=== PATIENT | male | born 1960 | race Caucasian/White ===

== ENCOUNTER 2016-09-28 23:31 | Emergency (ER) | payer MEDICAID ==
[~2016-09-28] VITALS: Ht 180.3 cm; Wt 68.9 kg
[2016-09-29] MEDS ORDERED: hydrOXYzine HCL 25 MG/ML VL IM ONE
[2016-09-29] MEDS ORDERED: methylPREDNISolone SOD SUCC 125 MG/2 ML VL IV ONE
[2016-09-29] MEDS ORDERED: ALBUTEROL SULF 2.5 MG/0.5ML(0.5%) NEB SOLN NEB ONE (00:45)
[2016-09-29 02:00] VITALS: BP 122/68
== END 2016-09-29 02:33 | disposition home or self-care (01) ==
LOC: ER 23:31
DX: T78.1XXA Other adverse food reactions, not elsewhere classified, initial encounter (principal); I10 Essential (primary) hypertension; I26.99 Other pulmonary embolism without acute cor pulmonale; K59.00 Constipation, unspecified; I31.9 Disease of pericardium, unspecified; Z88.2 Allergy status to sulfonamides; Z88.0 Allergy status to penicillin; Y92.89 Other specified places as the place of occurrence of the external cause
CPT/HCPCS: 94640; 96374; 99284; J2930

== ENCOUNTER 2016-11-13 09:51 | Inpatient (IN) | payer MEDICAID ==
[2016-11-12] MEDS: ACYCLOVIR 400 MG TAB PO SCH (22:30)
[2016-11-12] MEDS: ATORVASTATIN 20 MG TAB PO SCH (22:30)
[~2016-11-13] VITALS: Ht 172.7 cm; Wt 70.8 kg
[2016-11-13 10:33] LABS: Basophils # (auto) 0.1 uL; Basophils % (auto) 1.1 % (0.0-2.0); CONDITION Y; Eosinophils # (auto) 0 uL; Eosinophils % (auto) 0.3 % (0.0-7.0); Hematocrit 36.2 % (41.0-53.0); Hemoglobin 12.6 g/dL (13.5-17.5); Lymphocytes # (auto) 0.6 uL; Mean Corpuscular Hemoglobin 30.5 pg (28.0-32.0); Mean Corpuscular Hgb Conc. 34.7 g/dL (32.0-36.0); Mean Corpuscular Volume 87.7 fL (80.0-100.0); Mean Platelet Volume 7.2 fL (7.4-10.4); Monocytes # (auto) 0.6 uL; Monocytes % (auto) 6.5 % (0.0-12.0); Neutrophils # (auto) 7.2 uL; Neutrophils % (auto) 85.1 % (37.0-80.0); Platelet Count (auto) 237 10^3/uL (140-450); Red Cell Distribution Width 15.1 % (11.6-16.0); White Blood Cell 8.5 10^3/uL (4.4-10.8)
[2016-11-13 10:58] LABS: Albumin 3.7 g/dL (3.4-5.0); Alkaline Phosphatase 107 U/L (45-117); Anion Gap 9 (5-15); Aspartate Aminotransferase 20 U/L (15-37); BUN/Creatinine Ratio 19.8; Bilirubin, Total 0.4 mg/dL (0.2-1.0); Blood Urea Nitrogen 23 mg/dL (7-18); Calcium 8.6 mg/dL (8.5-10.1); Carbon Dioxide 22 mmol/L (21-32); Chloride 113 mmol/L (98-107); GFR African American 84 mL/min; GFR Non-African American 70 mL/min; Glucose 149 mg/dL (74-106); Magnesium 1.7 mg/dL (1.6-2.6); Potassium 3.7 mmol/L (3.5-5.1); Sodium 144 mmol/L (136-145); Total Protein 7.4 g/dL (6.4-8.2)
[2016-11-13] MEDS ORDERED: SODIUM CHLORIDE 0.9% 1,000 ML IVB ONE (12:14)
[2016-11-13] MEDS ORDERED: ONDANSETRON HCL 4 MG/2 ML VIAL IV ONE (12:15)
[2016-11-13 12:44] LABS: Magnesium 1.7 mg/dL (1.6-2.6)
[2016-11-13 12:51] LABS: INR 0.94 (0.9-1.15); Prothrombin Time 10.2 sec (9.37-12.3)
[2016-11-13] MEDS ORDERED: LEVOFLOXACIN 500MG 100 ML IV ONE (17:15)
[2016-11-13] MEDS ORDERED: ACETAMINOPHEN 325 MG TAB PO PRN (17:45)
[2016-11-13] MEDS ORDERED: TEMAZEPAM 15 MG CAP PO PRN (17:45)
[2016-11-13] MEDS ORDERED: ONDANSETRON HCL 4 MG/2 ML VIAL IV PRN (17:45)
[2016-11-13] MEDS ORDERED: DEXTROSE (50%) 50ML SYRG IV PRN (17:45)
[2016-11-13] MEDS ORDERED: HYDROcodone-ACET 5/325MG TAB PO PRN (17:45)
[2016-11-13] MEDS ORDERED: NITROGLYCERIN 0.4 MG SL TAB SL PRN (17:45)
[2016-11-13] MEDS ORDERED: MORPHINE SULF INJ 2 MG/ML SYRINGE 1ML IV PRN (17:45)
[2016-11-13] MEDS ORDERED: predniSONE 20 MG TAB PO ONE (18:00)
[2016-11-13 20:00] VITALS: BP 106/71
[2016-11-13] MEDS: SODIUM CHLORIDE 0.9% 1,000 ML IV SCH (20:00)
[2016-11-13] MEDS: ACCU-CHEK COMFORT CURVE STRIP VI SCH (22:00)
[2016-11-13] MEDS: InsuLIN REG 1unit/0.01ml Soln (100units/ml) SC SCH (22:00)
[2016-11-13] MEDS: CARVEDILOL 12.5 MG TAB PO SCH (22:00)
[2016-11-13] MEDS ORDERED: TACROLIMUS 0.5 MG CAP PO SCH (22:00)
[2016-11-13] MEDS: TACROLIMUS 0.5 MG CAP PO SCH (22:00)
[2016-11-13 22:19] VITALS: BP 106/71
[2016-11-13] MEDS: metroNIDAZOLE 500MG/100ML 100 ML IV SCH (22:30)
[2016-11-13] MEDS: ATORVASTATIN 20 MG TAB PO SCH (22:30)
[2016-11-13] MEDS: ACYCLOVIR 400 MG TAB PO SCH (22:30)
[2016-11-13] MEDS: FAMOTIDINE 20 MG TAB PO SCH (22:30)
[2016-11-14] MEDS: SODIUM CHLORIDE 0.9% 1,000 ML IV SCH ×2 (01:55→10:15)
[2016-11-14 05:11] VITALS: BP 104/61
[2016-11-14] MEDS: metroNIDAZOLE 500MG/100ML 100 ML IV SCH (05:44)
[2016-11-14] MEDS: MORPHINE SULF INJ 2 MG/ML SYRINGE 1ML IV PRN ×3 (05:51→19:34)
[2016-11-14 06:00] LABS: Urine Bilirubin Negative (Negative); Urine Blood Negative /uL (Negative); Urine Color Yellow (Yellow); Urine Glucose 2+ mg/dL (Normal); Urine Ketone Negative (Negative); Urine Mucus FEW (None Seen); Urine Nitrite Negative (Negative); Urine RBC <1 /hpf (0 - 3); Urine Squamous Epithelial Cell FEW /hpf (<5); Urine Urobilinogen Normal (Negative)
[2016-11-14] MEDS: InsuLIN REG 1unit/0.01ml Soln (100units/ml) SC SCH (07:00)
[2016-11-14] MEDS: ACCU-CHEK COMFORT CURVE STRIP VI SCH (07:00)
[2016-11-14 07:09] LABS: Basophils # (auto) 0 uL; CONDITION Y; Eosinophils # (auto) 0 uL; Eosinophils % (auto) 0.1 % (0.0-7.0); Hematocrit 25.1 % (41.0-53.0); Hemoglobin 8.6 g/dL (13.5-17.5); Lymphocytes # (auto) 0.3 uL; Lymphocytes % (auto) 6.3 % (10.0-50.0); Mean Corpuscular Hemoglobin 30.5 pg (28.0-32.0); Mean Corpuscular Hgb Conc. 34.5 g/dL (32.0-36.0); Mean Corpuscular Volume 88.3 fL (80.0-100.0); Mean Platelet Volume 6.8 fL (7.4-10.4); Monocytes # (auto) 0.1 uL; Monocytes % (auto) 1.8 % (0.0-12.0); Neutrophils # (auto) 4.8 uL; Neutrophils % (auto) 91.8 % (37.0-80.0); Platelet Count (auto) 136 10^3/uL (140-450); Red Cell Distribution Width 15.2 % (11.6-16.0); White Blood Cell 5.3 10^3/uL (4.4-10.8)
[2016-11-14 07:30] VITALS: BP 102/56
[2016-11-14 07:31] LABS: Albumin 2.7 g/dL (3.4-5.0); BUN/Creatinine Ratio 18.4; Bilirubin, Total 0.5 mg/dL (0.2-1.0); Calcium 7.5 mg/dL (8.5-10.1); Potassium 3.9 mmol/L (3.5-5.1); Total Protein 5.3 g/dL (6.4-8.2)
[2016-11-14 09:00] VITALS: BP 102/56
[2016-11-14] MEDS: [UNRECOGNIZED DRUG - OTHER] PO SCH (10:00)
[2016-11-14] MEDS ORDERED: LEVOFLOXACIN 500MG 100 ML IV SCH (10:00)
[2016-11-14] MEDS: CARVEDILOL 12.5 MG TAB PO SCH ×2 (10:00→22:00)
[2016-11-14] MEDS: predniSONE 20 MG TAB PO SCH (10:04)
[2016-11-14] MEDS: ACYCLOVIR 400 MG TAB PO SCH ×2 (10:04→17:08)
[2016-11-14] MEDS: FAMOTIDINE 20 MG TAB PO SCH (10:05)
[2016-11-14] MEDS: MULTIPLE VITAMIN TAB PO SCH (10:05)
[2016-11-14] MEDS: CHOLECALCIFEROL (VITD3) 1,000 UNIT TAB PO SCH (10:06)
[2016-11-14] MEDS: PANTOPRAZOLE 40 MG TAB PO SCH (10:06)
[2016-11-14] MEDS: TACROLIMUS 0.5 MG CAP PO SCH ×2 (11:46→22:19)
[2016-11-14] MEDS: SOD CHL 0.9%/ KCL 20MEQ 1,000 ML IV SCH (11:48)
[2016-11-14 13:00] VITALS: BP 110/60
[2016-11-14 17:00] VITALS: BP 107/59
[2016-11-14] MEDS ORDERED: ATOV5SUS PO (17:38)
[2016-11-14] MEDS ORDERED: TACR0.5C3 PO (17:38)
[2016-11-14] MEDS ORDERED: CAR3125T OR (17:38)
[2016-11-14] MEDS ORDERED: OME20T PO (17:38)
[2016-11-14] MEDS ORDERED: CHOLPOW40 XX (17:38)
[2016-11-14] MEDS ORDERED: SIRO1POW XX (17:38)
[2016-11-14] MEDS ORDERED: PRED1PAK10 PO (17:38)
[2016-11-14] MEDS ORDERED: ACYC1CAP23 PO (17:38)
[2016-11-14] MEDS ORDERED: ATOR20TA PO (17:38)
[2016-11-14 21:52] VITALS: BP 102/60
[2016-11-14] MEDS: ATORVASTATIN 20 MG TAB PO SCH (22:19)
[2016-11-15] MEDS: SOD CHL 0.9%/ KCL 20MEQ 1,000 ML IV SCH ×2 (00:20→14:24)
[2016-11-15 04:56] LABS: Basophils # (auto) 0 uL; Basophils % (auto) 0.3 % (0.0-2.0); CONDITION Y; Eosinophils # (auto) 0 uL; Eosinophils % (auto) 0.4 % (0.0-7.0); Hematocrit 26.8 % (41.0-53.0); Hemoglobin 9.4 g/dL (13.5-17.5); Lymphocytes # (auto) 0.6 uL; Lymphocytes % (auto) 11.4 % (10.0-50.0); Mean Corpuscular Hemoglobin 31.1 pg (28.0-32.0); Mean Corpuscular Hgb Conc. 35.1 g/dL (32.0-36.0); Mean Corpuscular Volume 88.8 fL (80.0-100.0); Mean Platelet Volume 7.5 fL (7.4-10.4); Monocytes # (auto) 0.6 uL; Monocytes % (auto) 10.5 % (0.0-12.0); Neutrophils # (auto) 4.2 uL; Neutrophils % (auto) 77.4 % (37.0-80.0); Platelet Count (auto) 143 10^3/uL (140-450); Red Cell Distribution Width 14.5 % (11.6-16.0); White Blood Cell 5.4 10^3/uL (4.4-10.8)
[2016-11-15 05:17] VITALS: BP 106/60
[2016-11-15] MEDS: ACYCLOVIR 400 MG TAB PO SCH (08:00)
[2016-11-15 08:30] VITALS: BP 113/64
[2016-11-15] MEDS: predniSONE 20 MG TAB PO SCH (08:33)
[2016-11-15] MEDS: PANTOPRAZOLE 40 MG TAB PO SCH (08:34)
[2016-11-15] MEDS: TACROLIMUS 0.5 MG CAP PO SCH (08:35)
[2016-11-15] MEDS: MULTIPLE VITAMIN TAB PO SCH (08:35)
[2016-11-15] MEDS: CHOLECALCIFEROL (VITD3) 1,000 UNIT TAB PO SCH (08:36)
[2016-11-15] MEDS: [UNRECOGNIZED DRUG - OTHER] PO SCH (08:36)
[2016-11-15] MEDS: MORPHINE SULF INJ 2 MG/ML SYRINGE 1ML IV PRN (09:14)
[2016-11-15] MEDS: CARVEDILOL 12.5 MG TAB PO SCH (09:17)
[2016-11-15 11:22] VITALS: BP 113/64
[2016-11-15 12:30] VITALS: BP 107/68
== END 2016-11-15 14:25 | disposition home or self-care (01) | DRG 249 ==
LOC: ER 09:51 → TELE 09:52 → TELE-CENTR 18:53
PROVIDERS: ADMIT Internal Medicine; ATTEND Internal Medicine
DX: K52.9 Noninfective gastroenteritis and colitis, unspecified (principal); C95.00 Acute leukemia of unspecified cell type not having achieved remission; D89.813 Graft-versus-host disease, unspecified; Z94.81 Bone marrow transplant status; Z94.84 Stem cells transplant status; I31.9 Disease of pericardium, unspecified; E86.0 Dehydration; G89.29 Other chronic pain; I10 Essential (primary) hypertension; I31.3 Pericardial effusion (noninflammatory); D63.8 Anemia in other chronic diseases classified elsewhere; I42.7 Cardiomyopathy due to drug and external agent; I45.10 Unspecified right bundle-branch block; Z80.6 Family history of leukemia; Z82.49 Family history of ischemic heart disease and other diseases of the circulatory system; Z83.3 Family history of diabetes mellitus; Z86.711 Personal history of pulmonary embolism; Z86.718 Personal history of other venous thrombosis and embolism; Z88.0 Allergy status to penicillin; Z88.8 Allergy status to other drugs, medicaments and biological substances; Z80.9 Family history of malignant neoplasm, unspecified; Z88.1 Allergy status to other antibiotic agents
CPT/HCPCS: 36415; 71020; 74176; 80053; 81001; 82962; 83036; 83605; 83690; 83735; 84484; 85025; 85610; 85730; 87045; 87086; 87493; 87899; 93005; 93306; 94761; 96365; 96375; J1956; J2405; J3490; J7507

== ENCOUNTER 2017-03-19 09:43 | Emergency (ER) | payer MEDICAID ==
[~2017-03-19] VITALS: Ht 180.3 cm; Wt 63.5 kg
[~2017-03-19 09:43] MED LIST: ACYC1CAP23 PO; ATOR20TA PO; ATOV5SUS PO; CAR3125T OR; CHOLPOW40 XX; OME20T PO; PRED1PAK10 PO; SIRO1POW XX; TACR0.5C3 PO
[2017-03-19 10:21] VITALS: BP 134/77
== END 2017-03-19 10:48 | disposition home or self-care (01) ==
LOC: ER 09:43
DX: S62.337A Displaced fracture of neck of fifth metacarpal bone, left hand, initial encounter for closed fracture (principal); C92.00 Acute myeloblastic leukemia, not having achieved remission; I10 Essential (primary) hypertension; Z79.899 Other long term (current) drug therapy; Z88.8 Allergy status to other drugs, medicaments and biological substances; Z88.0 Allergy status to penicillin; W01.0XXA Fall on same level from slipping, tripping and stumbling without subsequent striking against object, initial encounter; Y93.89 Activity, other specified; Y92.89 Other specified places as the place of occurrence of the external cause; Y99.8 Other external cause status
CPT/HCPCS: 29125; 73130

== ENCOUNTER 2017-05-22 12:02 | Inpatient (IN) | payer MEDICAID ==
[~2017-05-22] VITALS: Ht 177.8 cm; Wt 67.0 kg
[2017-05-22 12:38] LABS: Hematocrit 42.5 % (41.0-53.0); Hemoglobin 14.4 g/dL (13.5-17.5); Mean Corpuscular Hemoglobin 29.2 pg (28.0-32.0); Mean Corpuscular Hgb Conc. 33.8 g/dL (32.0-36.0); Mean Corpuscular Volume 86.6 fL (80.0-100.0); Platelet Count (auto) 99 10^3/uL (140-450); Red Blood Cells 4.92 10^6/uL (4.5-5.90); Red Cell Distribution Width 16.4 % (11.8-14.3); White Blood Cell 3.8 10^3/uL (4.4-10.8)
[2017-05-22 12:42] LABS: Band Neutrophils % (manual) 0; Basophils % (manual) 0 (0.0-2.0); Blast Cells 0; Metamyelocytes % 0; Myelocytes % 0; Promyelocytes % 0; Reactive Lymphocytes 0
[2017-05-22 13:02] LABS: Albumin 3.5 g/dL (3.4-5.0); Anion Gap 8 (5-15); Blood Urea Nitrogen 12 mg/dL (7-18); Calcium 8.7 mg/dL (8.5-10.1); Carbon Dioxide 24 mmol/L (21-32); Chloride 107 mmol/L (98-107); Glucose 117 mg/dL (74-106); Potassium 3.6 mmol/L (3.5-5.1); Sodium 139 mmol/L (136-145)
[2017-05-22 13:05] LABS: Alanine Aminotransferase 33 U/L (16-61); Aspartate Aminotransferase 26 U/L (15-37); BUN/Creatinine Ratio 10.9; GFR African American 89 mL/min; GFR Non-African American 74 mL/min
[2017-05-22 13:12] LABS: Alkaline Phosphatase 124 U/L (45-117); Bilirubin, Total 0.8 mg/dL (0.2-1.0); Total Protein 6.7 g/dL (6.4-8.2)
[2017-05-22 13:21] LABS: Eosinophils % (manual) 1 (0-7); Lymphocytes % (manual) 24 (10.0-50.0); Monocytes % (manual) 15 (0-12)
[2017-05-22] MEDS ORDERED: ASPirin 81 mg TAB PO ONE ×2 (13:30→15:15)
[2017-05-22] MEDS ORDERED: PROMETHAZINE HCL 25 MG/ML 1ML IV PRN (15:15)
[2017-05-22] MEDS ORDERED: ONDANSETRON PO PRN (15:15)
[2017-05-22] MEDS ORDERED: HYDROcodone-ACET 5/325MG TAB PO PRN (15:15)
[2017-05-22] MEDS ORDERED: NITROGLYCERIN 0.4 MG SL TAB SL PRN (15:15)
[2017-05-22] MEDS ORDERED: MORPHINE SULFATE 4 MG/ML SYR/VIAL IV PRN ×2 (15:15)
[2017-05-22] MEDS ORDERED: SIRO1POW XX (15:23)
[2017-05-22] MEDS ORDERED: AML5T PO (15:23)
[2017-05-22] MEDS ORDERED: ESOM40CA39 PO (15:23)
[2017-05-22] MEDS ORDERED: ONDA8TAB6 PO (15:23)
[2017-05-22] MEDS ORDERED: POSA1TAB PO (15:23)
[2017-05-22] MEDS ORDERED: POTA10TA51 PO (15:23)
[2017-05-22] MEDS ORDERED: MYCO500T PO (15:23)
[2017-05-22] MEDS ORDERED: ONDANSETRON ODT 4 MG TAB PO PRN (15:45)
[2017-05-22] MEDS ORDERED: FUROSEMIDE 40 MG TAB PO ONE (16:00)
[2017-05-22] MEDS ORDERED: POTASSIUM CHL 20 Meq TABLET PO ONE (16:00)
[2017-05-22] MEDS ORDERED: COLCHICINE 0.6 MG TAB PO ONE (17:15)
[2017-05-22 19:56] VITALS: BP 92/73
[2017-05-22 20:09] LABS: INR 1.01 (0.9-1.15)
[2017-05-22] MEDS: COLCHICINE 0.6 MG TAB PO SCH (21:44)
[2017-05-22 22:00] VITALS: BP 127/75
[2017-05-22] MEDS ORDERED: METOPROLOL TARTRATE 25 MG TAB PO SCH (22:00)
[2017-05-22] MEDS: POSACONAZOLE 100 MG PO SCH (22:00)
[2017-05-22] MEDS ORDERED: MYCOPHENOLATE 500 MG TAB PO SCH (22:00)
[2017-05-22] MEDS: ATOVAQUONE 750 MG/5 ML SUSP PO SCH (22:24)
[2017-05-22] MEDS: ATORVASTATIN 20 MG TAB PO SCH (22:24)
[2017-05-23] VITALS (11 sets, daily range): BP systolic 101–137; BP diastolic 63–77
[2017-05-23] MEDS ORDERED: IODIXANOL 320MG/ML 100ML BTL IV ONE ×2 (07:30→08:29)
[2017-05-23] MEDS ORDERED: LIDOCAINE 2%HCL (LOCAL ANESTH.) INJ 20ML MDV ONE (07:31)
[2017-05-23] MEDS ORDERED: SODIUM CHL 0.9% 0 ML ONE (08:01)
[2017-05-23] MEDS ORDERED: fentaNYL CITRATE 100 MCG/2 ML VL ONE (08:01)
[2017-05-23] MEDS ORDERED: MIDAZOLAM HCL 1MG/1ML-2 ML VIAL ONE (08:01)
[2017-05-23] MEDS ORDERED: ANGIOMAX 250 MG VIAL IV ONE (08:01)
[2017-05-23] MEDS ORDERED: VERAPAMIL 2.5MG/ML INJ 2ML VIAL IV ONE (08:02)
[2017-05-23] MEDS ORDERED: [UNRECOGNIZED DRUG - CODE] IV (08:06)
[2017-05-23] MEDS ORDERED: HEPARIN 1,000 UNITS/ml 1ML VIAL ONE ×2 (08:33→08:45)
[2017-05-23] MEDS ORDERED: ONDANSETRON HCL 4 MG/2 ML VIAL ONE (08:39)
[2017-05-23] MEDS ORDERED: ADENOSINE 90 MG/30 ML INJ IV ONE (08:45)
[2017-05-23] MEDS ORDERED: POTASSIUM CHL 20 Meq TABLET PO SCH (10:00)
[2017-05-23] MEDS: CARVEDILOL 3.125 MG TAB PO SCH ×2 (10:00→22:36)
[2017-05-23] MEDS ORDERED: POTASSIUM CHLORIDE 40 MEQ PO SCH (10:00)
[2017-05-23] MEDS ORDERED: PATIENTS OWN MEDICATION (Potassium Chloride (Potassium Chloride Cr) 20 MEQ) PO SCH (10:00)
[2017-05-23] MEDS: ATOVAQUONE 750 MG/5 ML SUSP PO SCH ×2 (12:00→22:30)
[2017-05-23] MEDS: COLCHICINE 0.6 MG TAB PO SCH ×2 (12:02→22:34)
[2017-05-23] MEDS: PANTOPRAZOLE 40 MG TAB PO SCH (12:02)
[2017-05-23] MEDS: ASPirin 81 mg TAB PO SCH (12:03)
[2017-05-23] MEDS: SPIRONOLACTONE 25 MG TAB PO SCH ×2 (12:03→17:46)
[2017-05-23] MEDS: CAPTOPRIL 12.5 MG TAB PO SCH ×2 (14:00→22:00)
[2017-05-23 14:04] LABS: Hematocrit 39.9 % (41.0-53.0); Mean Corpuscular Hemoglobin 28.5 pg (28.0-32.0); Mean Corpuscular Hgb Conc. 32.7 g/dL (32.0-36.0); Mean Corpuscular Volume 87.1 fL (80.0-100.0); Platelet Count (auto) 82 10^3/uL (140-450); Red Blood Cells 4.58 10^6/uL (4.5-5.90); Red Cell Distribution Width 16.1 % (11.8-14.3); White Blood Cell 2.2 10^3/uL (4.4-10.8)
[2017-05-23 14:23] LABS: Anion Gap 9 (5-15); BUN/Creatinine Ratio 12.5; Blood Urea Nitrogen 13 mg/dL (7-18); Calcium 7.8 mg/dL (8.5-10.1); Carbon Dioxide 24 mmol/L (21-32); Chloride 110 mmol/L (98-107); GFR African American 95 mL/min; GFR Non-African American 79 mL/min; Glucose 133 mg/dL (74-106); Potassium 3.7 mmol/L (3.5-5.1); Sodium 143 mmol/L (136-145)
[2017-05-23 14:31] LABS: Band Neutrophils % (manual) 0; Basophils % (manual) 0 (0.0-2.0); Blast Cells 0; Metamyelocytes % 0; Myelocytes % 0; Promyelocytes % 0; Reactive Lymphocytes 0
[2017-05-23 14:57] LABS: Eosinophils % (manual) 1 (0-7); Lymphocytes % (manual) 36 (10.0-50.0); Monocytes % (manual) 20 (0-12)
[2017-05-23] MEDS: POSACONAZOLE 100 MG PO SCH (22:00)
[2017-05-23] MEDS: MYCOPHENOLATE 500 MG PO SCH (22:30)
[2017-05-23] MEDS: ATORVASTATIN 20 MG TAB PO SCH (22:36)
[2017-05-24 05:00] VITALS: BP 122/89
[2017-05-24] MEDS: CAPTOPRIL 12.5 MG TAB PO SCH (06:00)
[2017-05-24 06:17] LABS: BUN/Creatinine Ratio 14.7; Calcium 8.3 mg/dL (8.5-10.1); Potassium 3.5 mmol/L (3.5-5.1)
[2017-05-24] MEDS: SPIRONOLACTONE 25 MG TAB PO SCH (06:56)
[2017-05-24 09:30] VITALS: BP 114/71
[2017-05-24] MEDS: ASPirin 81 mg TAB PO SCH (09:41)
[2017-05-24] MEDS: ATOVAQUONE 750 MG/5 ML SUSP PO SCH (09:42)
[2017-05-24] MEDS: MYCOPHENOLATE 500 MG PO SCH (09:42)
[2017-05-24] MEDS: COLCHICINE 0.6 MG TAB PO SCH (09:43)
[2017-05-24] MEDS: CARVEDILOL 3.125 MG TAB PO SCH (09:44)
[2017-05-24] MEDS: PANTOPRAZOLE 40 MG TAB PO SCH (09:45)
[2017-05-24] MEDS ORDERED: POTASSIUM CHL 20 Meq TABLET PO SCH (10:00)
[2017-05-24] MEDS ORDERED: SIROLIMUS 0.5 MG PO SCH (10:00)
== END 2017-05-24 13:28 | disposition home or self-care (01) | DRG 192 ==
LOC: ER 12:02 → TELE 12:03 → TELE-WESTW 18:02
PROVIDERS: ADMIT Internal Medicine; ATTEND Internal Medicine
PROC: B2111ZZ Fluoroscopy of Multiple Coronary Arteries using Low Osmolar Contrast (ICD-10-PCS; principal; 2017-05-22)
PROC: 4A023N7 Measurement of Cardiac Sampling and Pressure, Left Heart, Percutaneous Approach (ICD-10-PCS; 2017-05-22)
PROC: 4A0335C Measurement of Arterial Flow, Coronary, Percutaneous Approach (ICD-10-PCS; 2017-05-22)
DX: I11.0 Hypertensive heart disease with heart failure (principal); C92.00 Acute myeloblastic leukemia, not having achieved remission; I31.3 Pericardial effusion (noninflammatory); Z94.84 Stem cells transplant status; D69.6 Thrombocytopenia, unspecified; I42.9 Cardiomyopathy, unspecified; R07.89 Other chest pain; I50.31 Acute diastolic (congestive) heart failure; I25.10 Atherosclerotic heart disease of native coronary artery without angina pectoris; K21.9 Gastro-esophageal reflux disease without esophagitis; Z79.82 Long term (current) use of aspirin; Z79.899 Other long term (current) drug therapy; Z82.49 Family history of ischemic heart disease and other diseases of the circulatory system; Z83.3 Family history of diabetes mellitus; Z88.0 Allergy status to penicillin; Z88.8 Allergy status to other drugs, medicaments and biological substances; Z88.2 Allergy status to sulfonamides
CPT/HCPCS: 36415; 71046; 80048; 80053; 80061; 83735; 83880; 84484; 85007; 85027; 85379; 85610; 93005; 93306; 93458; 93971; 99152; J0153; J2250; J2405; J7517; Q0162; Q9967

== ENCOUNTER → 2017-06-30 | Emergency (ER) | payer MEDICAID ==
[~2017-06-30] MED LIST changes: -ACYC1CAP23 PO; +AML5T PO; -CAR3125T OR; -CHOLPOW40 XX; +ESOM40CA39 PO; +MYCO500T PO; -OME20T PO; +ONDA8TAB6 PO; +POSA1TAB PO; +POTA10TA51 PO; -PRED1PAK10 PO; -TACR0.5C3 PO; +[UNRECOGNIZED DRUG - CODE] IV
== END | disposition left against medical advice (07) ==
LOC: ER 23:20
DX: I10 Essential (primary) hypertension (principal); Z53.21 Procedure and treatment not carried out due to patient leaving prior to being seen by health care provider